=== PATIENT | female | born 1950 | race Two or more races ===

== ENCOUNTER 2017-03-14 06:33 | Day surgery (SDC) | payer MEDICARE, OTHER ==
--- NOTE | 2017-03-10 10:46 | Pre-Procedure Note/Attestation ---
Pre-Procedure Note/Attestation Complete Prior to Procedure Planned Procedure: right Procedure Narrative: 1. CATARACT EXTRACTION WITH PHACO AND PC IOL IMPLANTATION, RIGHT EYE. Indications for Procedure Pre-Operative Diagnosis: 1. CATARACT , RIGHT EYE Attestation I attest that I discussed the nature of the procedure; its benefits; risks and complications; and alternatives (and the risks and benefits of such alternatives ), prior to the procedure, with the patient (or the patient's legal enrollment eligibility representative). I attest that, if there was a reasonable possibility of needing a blood transfusion, the patient (or the patient's legal enrollment eligibility representative) was given the [place] Department of Health Services standardized written summary, pursuant to the Ravi [place] Blood Safety Act ([place] Health and Safety Code # 1645, as amended). I attest that I re-evaluated the patient just prior to the surgery and that there has been no change in the patient's H&P, except as documented below: LESVIA WEISS Mar 10, 2017 10:46
--- NOTE | 2017-03-10 10:46 | Pre-Procedure Note/Attestation ---
Pre-Procedure Note/Attestation Complete Prior to Procedure Planned Procedure: right Procedure Narrative: 1. CATARACT EXTRACTION WITH PHACO AND PC IOL IMPLANTATION, RIGHT EYE. Indications for Procedure Pre-Operative Diagnosis: 1. CATARACT , RIGHT EYE Attestation I attest that I discussed the nature of the procedure; its benefits; risks and complications; and alternatives (and the risks and benefits of such alternatives ), prior to the procedure, with the patient (or the patient's legal healthcare representative). I attest that, if there was a reasonable possibility of needing a blood transfusion, the patient (or the patient's legal healthcare representative) was given the [place] Department of Health Services standardized written summary, pursuant to the Ravi [place] Blood Safety Act ([place] Health and Safety Code # 1645, as amended). I attest that I re-evaluated the patient just prior to the surgery and that there has been no change in the patient's H&P, except as documented below: LESVIA WEISS Mar 10, 2017 10:46
--- NOTE | 2017-03-10 10:46 | Pre-Procedure Note/Attestation ---
Pre-Procedure Note/Attestation Complete Prior to Procedure Planned Procedure: right Procedure Narrative: 1. CATARACT EXTRACTION WITH PHACO AND PC IOL IMPLANTATION, RIGHT EYE. Indications for Procedure Pre-Operative Diagnosis: 1. CATARACT , RIGHT EYE Attestation I attest that I discussed the nature of the procedure; its benefits; risks and complications; and alternatives (and the risks and benefits of such alternatives ), prior to the procedure, with the patient (or the patient's legal inside outside sales representative). I attest that, if there was a reasonable possibility of needing a blood transfusion, the patient (or the patient's legal inside outside sales representative) was given the [place] Department of Health Services standardized written summary, pursuant to the Ravi [place] Blood Safety Act ([place] Health and Safety Code # 1645, as amended). I attest that I re-evaluated the patient just prior to the surgery and that there has been no change in the patient's H&P, except as documented below: LESVIA WEISS Mar 10, 2017 10:46
[2017-03-14] VITALS (9 sets, daily range): BP systolic 103–137; BP diastolic 56–81
[~2017-03-14] VITALS: Ht 152.4 cm; Wt 59.0 kg
[2017-03-14] MEDS: Ketorolac Tromethamine Opth 5ml Soln RIGHT EYE SCH ×22 (06:05→07:45)
[~2017-03-14 06:33] MED LIST: Akten 3.5% 1ml Btl ONE; Ketorolac Tromethamine Opth 5ml Soln ONE; Phenylephrine 10% Opth Soln 5ml ONE; Tropicamide 1% Opth 15ml Soln ONE; Vigamox Opth Soln 3ml ONE; acetaZOLAMIDE 125mg tab ORAL ONE
[2017-03-14] MEDS: Akten 3.5% 1ml Btl RIGHT EYE SCH ×3 (07:06→07:41)
[2017-03-14] MEDS: Tropicamide 1% Opth 15ml Soln RIGHT EYE SCH ×3 (07:06→07:41)
[2017-03-14] MEDS: Phenylephrine 10% Opth Soln 5ml RIGHT EYE SCH ×3 (07:06→07:41)
[2017-03-14] MEDS: Vigamox Opth Soln 3ml RIGHT EYE SCH ×3 (07:07→07:41)
[2017-03-14] MEDS ORDERED: Lidocaine 1% MPF 10mg/ml 5ml ONE (07:10)
[2017-03-14] MEDS ORDERED: BSS 500ml btl ONE (07:10)
[2017-03-14] MEDS ORDERED: Tetracaine 0.5% Opth 4ml Soln ONE (07:11)
[2017-03-14] MEDS ORDERED: Dexamethasone 4mg/ml vial ONE (07:11)
[2017-03-14] MEDS ORDERED: Carbachol 0.01% Op Soln 1.5ml vial ONE (07:11)
[2017-03-14] MEDS ORDERED: Povidone-Iodine 5% opth solution ONE (07:11)
[2017-03-14] MEDS ORDERED: EPINEPHrine 1mg/1ml Amp ONE (07:12)
[2017-03-14] MEDS ORDERED: BSS 15ml BTL ONE (07:12)
[2017-03-14] MEDS ORDERED: Sodium Hyaluronate 10 mg/ml 0.85ml ONE (07:12)
[2017-03-14] MEDS ORDERED: BONE STRENGTH PO (07:39)
[2017-03-14] MEDS ORDERED: MAGNESIUM250 M2 PO (07:39)
[2017-03-14] MEDS ORDERED: PRESERVISION A1 EACH PO (07:39)
[2017-03-14] MEDS ORDERED: GROW BONE PO (07:39)
[2017-03-14 08:03] LABS: ANION GAP 11 mmol/L (5-15); BASOPHILS % (AUTO) 1.4 % (0.0-2.0); BLOOD UREA NITROGEN 31 mg/dL (7-18); CALCIUM 9.6 MG/DL (8.5-10.1); CARBON DIOXIDE 23 MMOL/L (21-32); CHLORIDE 106 MMOL/L (98-107); CREATININE 0.8 MG/DL (0.55-1.30); HEMATOCRIT 37.2 % (37.0-47.0); HEMOGLOBIN 12.5 G/DL (12.0-16.0); LYMPHOCYTES % (AUTO) 34.2 % (20.0-45.0); MEAN CORPUSCULAR VOLUME 92 FL (80-99); MONOCYTES % (AUTO) 8.7 % (1.0-10.0); NEUTROPHILS % (AUTO) 50.8 % (45.0-75.0); PLATELET COUNT 164 K/UL (150-450); POTASSIUM 4.2 MMOL/L (3.5-5.1); RED BLOOD COUNT 4.02 M/UL (4.20-5.40); RED CELL DISTRIBUTION WIDTH 11.4 % (11.6-14.8); SODIUM 140 MMOL/L (136-145); WHITE BLOOD COUNT 5.9 K/UL (4.8-10.8)
[2017-03-14] MEDS ORDERED: NS Irrig 1000ml ONE (09:00)
[2017-03-14] MEDS ORDERED: Alfentanil 2ml Inj ONE (09:00)
[2017-03-14] MEDS ORDERED: Midazolam 2mg/2ml Inj ONE (09:00)
[2017-03-14] MEDS ORDERED: LR 1000ml ONE (09:00)
[2017-03-14] MEDS ORDERED: Sterile Water Irrig 1000ml IRRIG ONE (09:00)
[2017-03-14] MEDS ORDERED: LR 1000ml 1,000 ML IVLG SCH (09:28)
[2017-03-14] MEDS ORDERED: LR 1000ml 1,000 ML IV SCH (09:30)
[2017-03-14] MEDS ORDERED: fentaNYL 100 mcg/2 mL IV PRN (09:30)
--- NOTE | 2017-03-14 09:31 | Anethesia Preoperative Eval ---
Anesthesia Pre-op PMH/ROS General Date of Evaluation: Mar 14, 2017 Time of Evaluation: 09:01 Anesthesiologist: Dangelo ASA Score: ASA 1 Mallampati Score Class I : Soft palate, uvula, fauces, pillars visible Class II: Soft palate, uvula, fauces visible Class III: Soft palate, base of uvula visible Class IV: Only hard plate visible Mallampati Classification: Class II Surgeon: Dipika Diagnosis: Cataract right eye Surgical Procedure: Extraction of cataract with IOL Family History: no anesthesia problems Allergies: Uncoded Allergies: CONTRACEPTION PILLS (Allergy, Severe, 03/14/17) SWOLLEN LEGS, TIGHT CHEST Medications: see eMAR Past Medical History Cardiovascular: Denies: HTN, CAD, [place], valve dz, arrhythmia, other Pulmonary: Denies: asthma, COPD, ROD, other Gastrointestinal/Genitourinary: Denies: GERD, CRI, ESRD, other Neurologic/Psychiatric: Denies: dementia, CVA, depression/anxiety, TIA, other Endocrine: Denies: DM, hypothyroidism, steroids, other HEENT: Denies: cataract (L), cataract (R), glaucoma, [place] (L), [place] (R), other Hematology/Immune: Denies: anemia, DVT, bleeding disorder, other Musculoskeletal/Integumentary: Denies: OA, RA, DJD, DDD, edema, other PMH Narrative: Denies significant PMH PSxH Narrative: Oophorectomy Anesthesia Pre-op Phys. Exam Physician Exam Last Vital Signs Date Time Temp Pulse Resp B/P (MAP) Pulse Ox O2 Delivery O2 Flow Rate FiO2 03/14/17 07:29 97.7 63 20 137/81 98 Room Air Constitutional: NAD Neurologic: CN 2-12 intact Cardiovascular: no M/R/G Gastrointestinal: S/NT/ND Airway Exam Mallampati Score: Class II MO: full ROM: full Teeth: intact Anesthesia Pre-op A/P Labs Hematology Test 03/14/17 07:38 White Blood Count 5.9 K/UL (4.8-10.8) Red Blood Count 4.02 M/UL (4.20-5.40) L Hemoglobin 12.5 G/DL (12.0-16.0) Hematocrit 37.2 % (37.0-47.0) Mean Corpuscular Volume 92 FL (80-99) Mean Corpuscular Hemoglobin 30.9 PG (27.0-31.0) Mean Corpuscular Hemoglobin Concent 33.5 G/DL (32.0-36.0) Red Cell Distribution Width 11.4 % (11.6-14.8) L Platelet Count 164 K/UL (150-450) Mean Platelet Volume 9.9 FL (6.5-10.1) Neutrophils (%) (Auto) 50.8 % (45.0-75.0) Lymphocytes (%) (Auto) 34.2 % (20.0-45.0) Monocytes (%) (Auto) 8.7 % (1.0-10.0) Eosinophils (%) (Auto) 5.0 % (0.0-3.0) H Basophils (%) (Auto) 1.4 % (0.0-2.0) Chemistry Test 03/14/17 07:38 Sodium Level 140 MMOL/L (136-145) Potassium Level 4.2 MMOL/L (3.5-5.1) Chloride Level 106 MMOL/L (98-107) Carbon Dioxide Level 23 MMOL/L (21-32) Anion Gap 11 mmol/L (5-15) Blood Urea Nitrogen 31 mg/dL (7-18) H Creatinine 0.8 MG/DL (0.55-1.30) Estimat Glomerular Filtration Rate > 60 mL/min (>60) Glucose Level 91 MG/DL (74-106) Calcium Level 9.6 MG/DL (8.5-10.1) Risk Assessment & Plan Assessment: Healthy female for cataract extraction Plan: MAC Status Change Before Surgery: No Pre-Antibiotics Drug: None MIGDALIA TY M.D. Mar 14, 2017 09:31
--- NOTE | 2017-03-14 09:31 | Anethesia Preoperative Eval ---
Anesthesia Pre-op PMH/ROS General Date of Evaluation: Mar 14, 2017 Time of Evaluation: 09:01 Anesthesiologist: Dangelo ASA Score: ASA 1 Mallampati Score Class I : Soft palate, uvula, fauces, pillars visible Class II: Soft palate, uvula, fauces visible Class III: Soft palate, base of uvula visible Class IV: Only hard plate visible Mallampati Classification: Class II Surgeon: Dipika Diagnosis: Cataract right eye Surgical Procedure: Extraction of cataract with IOL Family History: no anesthesia problems Allergies: Uncoded Allergies: CONTRACEPTION PILLS (Allergy, Severe, 03/14/17) SWOLLEN LEGS, TIGHT CHEST Medications: see eMAR Past Medical History Cardiovascular: Denies: HTN, CAD, CT, valve dz, arrhythmia, other Pulmonary: Denies: asthma, COPD, ROD, other Gastrointestinal/Genitourinary: Denies: GERD, CRI, ESRD, other Neurologic/Psychiatric: Denies: dementia, CVA, depression/anxiety, TIA, other Endocrine: Denies: DM, hypothyroidism, steroids, other HEENT: Denies: cataract (L), cataract (R), glaucoma, [place] (L), [place] (R), other Hematology/Immune: Denies: anemia, DVT, bleeding disorder, other Musculoskeletal/Integumentary: Denies: OA, RA, DJD, DDD, edema, other PMH Narrative: Denies significant PMH PSxH Narrative: Oophorectomy Anesthesia Pre-op Phys. Exam Physician Exam Last Vital Signs Date Time Temp Pulse Resp B/P (MAP) Pulse Ox O2 Delivery O2 Flow Rate FiO2 03/14/17 07:29 97.7 63 20 137/81 98 Room Air Constitutional: NAD Neurologic: CN 2-12 intact Cardiovascular: no M/R/G Gastrointestinal: S/NT/ND Airway Exam Mallampati Score: Class II MO: full ROM: full Teeth: intact Anesthesia Pre-op A/P Labs Hematology Test 03/14/17 07:38 White Blood Count 5.9 K/UL (4.8-10.8) Red Blood Count 4.02 M/UL (4.20-5.40) L Hemoglobin 12.5 G/DL (12.0-16.0) Hematocrit 37.2 % (37.0-47.0) Mean Corpuscular Volume 92 FL (80-99) Mean Corpuscular Hemoglobin 30.9 PG (27.0-31.0) Mean Corpuscular Hemoglobin Concent 33.5 G/DL (32.0-36.0) Red Cell Distribution Width 11.4 % (11.6-14.8) L Platelet Count 164 K/UL (150-450) Mean Platelet Volume 9.9 FL (6.5-10.1) Neutrophils (%) (Auto) 50.8 % (45.0-75.0) Lymphocytes (%) (Auto) 34.2 % (20.0-45.0) Monocytes (%) (Auto) 8.7 % (1.0-10.0) Eosinophils (%) (Auto) 5.0 % (0.0-3.0) H Basophils (%) (Auto) 1.4 % (0.0-2.0) Chemistry Test 03/14/17 07:38 Sodium Level 140 MMOL/L (136-145) Potassium Level 4.2 MMOL/L (3.5-5.1) Chloride Level 106 MMOL/L (98-107) Carbon Dioxide Level 23 MMOL/L (21-32) Anion Gap 11 mmol/L (5-15) Blood Urea Nitrogen 31 mg/dL (7-18) H Creatinine 0.8 MG/DL (0.55-1.30) Estimat Glomerular Filtration Rate > 60 mL/min (>60) Glucose Level 91 MG/DL (74-106) Calcium Level 9.6 MG/DL (8.5-10.1) Risk Assessment & Plan Assessment: Healthy female for cataract extraction Plan: MAC Status Change Before Surgery: No Pre-Antibiotics Drug: None MIGDALIA TY M.D. Mar 14, 2017 09:31
--- NOTE | 2017-03-14 09:32 | Immediate Post-Op Evaluation ---
Immediate Post-Op Evalulation Immediate Post-Op Evalulation Procedure: Cataract extraction with IOL right eye Date of Evaluation: Mar 14, 2017 Time of Evaluation: 09:50 IV Fluids: 400 Blood Pressure Systolic: 128 Blood Pressure Diastolic: 71 Pulse Rate: 57 Respiratory Rate: 13 O2 Sat by Pulse Oximetry: 95 Temperature (Fahrenheit): 97.7 Pain Score (1-10): 0 Nausea: No Vomiting: No Complications No complication Patient Status: awake, patent, none Hydration Status: adequate Drug: None MIGDALIA TY M.D. Mar 14, 2017 09:31
--- NOTE | 2017-03-14 09:44 | Discharge Summary ---
Discharge Summary Discharge Summary Discharge Summary DATE OF ADMISSION: 03/14/2017 DATE OF DISCHARGE: 03/14/2017 REASON FOR HOSPITALIZATION: cataract right eye SURGERY PERFORMED: Cataract extraction with phaco and PC IOL implantation, right eye CONDITION IN THE HOSPITAL:The patient tolerated the surgery without complications. DISCHARGE CONDITION: The patient was stable at discharge. DISCHARGE MEDICATIONS: 1. Vigamox eye drops one drop q.i.d, OD 2. Prednisolone one drop q.i.d, OD 3. Acular one drop q40 OD POSTOPERATIVE ORDERS: The patient has to rest at home. No bending, No lifting, No watching Television tonight. POSTOPERATIVE FOLLOW UP: The patient will be followed in my office tomorrow morning at 7 o'clock. LESVIA WEISS Mar 14, 2017 09:44
--- NOTE | 2017-03-14 09:47 | 48 Hour Post Anesthesia Eval ---
Post Anesthesia Evaluation Procedure: Cataract extraction with IOL right eye Date of Evaluation: Mar 14, 2017 Time of Evaluation: 10:15 Blood Pressure Systolic: 114 0: 63 Pulse Rate: 59 Respiratory Rate: 12 O2 Sat by Pulse Oximetry: 97 Airway: patent Nausea: No Vomiting: No Pain Intensity: 0 Hydration Status: adequate Cardiopulmonary Status: Stable Mental Status/LOC: patient returned to baseline Follow-up Care/Observations: As per surgery Post-Anesthesia Complications: No anesthetic complication Follow-up care needed: N/A MIGDALIA TY M.D. Mar 14, 2017 09:47
--- NOTE | 2017-03-14 09:47 | Brief Operative Note ---
Immediate Post Operative Note Operative Note Chief Complaint: Blurry vision, difficulty driving and reading, right eye Pre-op Diagnosis: 1. CATARACT , RIGHT EYE Procedure: Cataract extraction with phaco and PC IOl implantation, right eye Post-op Diagnosis: same as pre-op Surgeon: Lesvia Bar MD Automatic Pad Making Machine Operator: None Additional Surgeons: None Anesthesiologist: Dr. Forte Anesthesia: MAC Specimen: none Complications: none Condition: stable Fluids: 500ml Estimated Blood Loss: none Drains: none Implant(s) used?: Yes - Monofocal PC IOl implanted in the right eye without complication LESVIA BAR Mar 14, 2017 09:47
--- NOTE | 2017-03-14 16:00 | Pre-op HX & Phy Repo 2 SIG ---
DATE OF ADMISSION: 03/14/2017 PRESURGICAL INTERNAL MEDICINE HISTORY AND PHYSICAL REASON FOR EVALUATION: I was asked by Dr. Edwin Bar to see this 66-year-old female, who is going for elective surgery on the right eye. The patient has a cataract, right eye. Please see full History and Physical by Dr. Edwin Bar. The patient was evaluated. Chart was reviewed. PAST MEDICAL HISTORY/REVIEW OF SYSTEMS: Denies history of chest pain, palpitation, or heart attack. No history of hypertension or stroke. Denies history of diabetes or thyroid problem. No history of respiratory problem, asthma, or bronchitis. Denies history of GI bleeding. No heartburn. No hepatitis. She has a history of degenerative joint disease and old history of anemia. No history of Parkinson disease, tremors, or muscle atrophy. SURGICAL HISTORY: Fibroids uterus x3 and oophorectomy bilaterally. The patient also had a surgery on both eyes for glaucoma. PRESENT MEDICATIONS: Includes calcium and magnesium supplement, eye drops for glaucoma. ALLERGIES: To contraceptive developed swollen leg and shortness of breath. SOCIAL HISTORY: Denies history of smoke, alcohol or street drug use. FAMILY HISTORY: Both parents had from complication of stroke. PHYSICAL EXAMINATION: GENERAL: The patient is alert, well-developed, well-nourished female in her 60s. Weight 130 pounds. Some information obtained from the daughter at bedside. VITAL SIGNS: Blood pressure 137/81, temperature 97.7, pulse 59, respirations 20, and O2 saturation 98% on room air. SKIN: Dry, pale and warm. No rashes. No open ulcer. LYMPH NODES: Not enlarged. HEENT: Head is normocephalic, atraumatic. Ears, clear. No discharge. Eyes, full description per Dr. Edwin Bar. Nose clear. No discharge. Mouth, clear and moist without dentures upper and lower. NECK: Supple. No jugular venous distention. Carotids artery +2. Trachea midline. No thyroid gland enlargement or node. CHEST: No deformity or asymmetry. LUNGS: Clear to auscultation and percussion. No rales or rhonchi. HEART: Sinus rhythm. No ectopy. No S3 or S4. Bradycardia. ABDOMEN: Soft. No palpable masses. Liver and spleen not enlarged. No rebound. EXTREMITIES: Osteoarthritis of knee and trigger finger on the hand. No peripheral edema or varicose veins. GENITOURINARY TRACT: No dysuria. CVA nontender. CENTRAL NERVOUS SYSTEM: No tremor. No nystagmus. LABORATORY AND DIAGNOSTIC DATA: Electrocardiogram, sinus bradycardia, 51 per minute, otherwise normal ECG. The patient's last food intake 10 p.m. yesterday. Laboratory work pending. IMPRESSION: 1. Cataract, right eye. 2. Glaucoma. 3. Osteoarthritis, knee. 4. History of anemia longtime ago. PLAN: Cataract extraction, right eye with intraocular lens implant by Dr. Edwin Bar. CONCLUSION: The patient's vital signs stable. ECG shows sinus bradycardia normal. The patient did not eat or drink from last night. The patient's condition optimized for surgery. Thank you very much, Dr. Bar, for privilege to participate presurgical care of this interesting patient. Yong Boo M.D. DR: TRISTAN JOB#: [id number] CC:
--- NOTE | 2017-03-14 21:45 | Operative Note - Dictated ---
DATE OF OPERATION: 03/14/2017 FACILITY: [facility] SURGEON: Edwin Bar M.D. LAYUP WORKER: None. ANESTHESIOLOGIST: Ravi Forte M.D. ANESTHESIA: Monitored anesthesia care (MAC). PREOPERATIVE DIAGNOSIS: Cataract, right eye. POSTOPERATIVE DIAGNOSIS: Cataract, right eye. SURGERY PERFORMED: Cataract extraction with phacoemulsification and posterior chamber intraocular lens implantation, right eye. INDICATION FOR SURGERY: The patient is a 66-year-old lady with history of osteopenia. The patient has hypertension and hypercholesterolemia. The patient is taking medication for all these ailments. She is complaining of blurred vision in the right eye. She is not a smoker, she is not drinker, and she is not allergic to any medications. She is complaining of blurry vision in the right eye. On examination of the right eye, the cornea is clear. Anterior chamber is clean and quiet. Pupillary reflexes normal. There is no RAPD. There is 4+ nuclear sclerosis and 3+ cortical cataract. Funduscopy showed normal optic disc, normal macula, and normal peripheral retina is flat. To improve her vision in the right eye, the cataract has to be removed and posterior chamber intraocular lens has to be implanted. INFORMED CONSENT: The nature of the surgery, risks, benefits, alternatives, and potential complications were all explained in detail to the patient in her language, Farsi. The potential complications including, but not limited to bleeding, infection, posterior capsular rupture, lens subluxation, flat anterior chamber, iris prolapse, uveitis, corneal edema, macular edema, endophthalmitis, retinal detachment, loss of vision, and even loss of the eye were all explained in detail to the patient. The patient voiced understanding and accepted all the complications. The alternatives including accommodating lenses, multifocal lenses, toric lens, and conventional cataract surgery with limbal relaxing incision (LRI) for treatment of astigmatism were all explained in detail to the patient in her language, Farsi. The patient voiced understanding and accepted all the complications. The patient elected to have only conventional cataract surgery in the right eye. Then, she signed the consent form, which is in the chart. DESCRIPTION OF SURGERY AND FINDINGS: Following that, the patient was taken to the operation room in a stable condition. Lidocaine gel Ak[place] 3.5% were applied to the conjunctiva of the right eye. IV sedation was given by the anesthesiologist, Dr. Forte. After adequate anesthesia and sedation had been achieved, the right eye was prepped and draped in a sterile fashion for intraocular surgery. Following that, a speculum was placed in the right eye. Following that, using a Super Sharp knife, a clear corneal side port was created. A 1% lidocaine without preservative (MPF) was injected into the anterior chamber. Viscoelastic agent Healon was injected into the anterior chamber. Following that, using a 2.8 mm keratome, a clear corneal temporal keratotomy was performed. Following that, viscoelastic agent was injected into the anterior chamber again. Following that, Vision Blue was injected under the viscoelastic agent to stain the anterior capsule of the lens. Following that, anterior capsulotomy was performed in the fashion of capsulorrhexis beautifully. Following that, the viscoelastic agent was removed from the anterior chamber. Following that, with balanced salt solution, hydrodissection and hydrodelineation were performed and the nucleus was freed. Following that, clear fresh new viscoelastic agent Healon was injected into the anterior chamber to protect the endothelium of the cornea. Following that, using phacoemulsification machine in the fashion of horizontal chop, the nucleus was removed in toto. Following that, using irrigation-aspiration unit, the cortical material was removed from the capsular bag and the capsular bag was polished. Following that, the capsular bag was filled with viscoelastic agent Healon. Following that, a +28.5 diopter foldable ZCB00 foldable PCIOL was injected with serial number [id number] was inserted into the capsular bag. Using a [place]ins[place] hook, the lens was manipulated within the proper position. Following that, the viscoelastic agent was removed from the anterior posterior part of the lens. Following that, the anterior chamber was filled with balanced salt solution and the wound was hydrated with balanced salt solution. Following that, Vigamox eye drops were applied to the conjunctiva of the right eye. The patient tolerated the surgery without complications. At the end of the surgery, the eye was patched with a clear sterile fenestrated shield. Following that, the patient was transferred to the recovery room. In the recovery room, 125 mg Diamox was given by mouth stat. Postoperative orders and directions were given to the patient. The patient will be discharged home upon stabilization. The patient will be followed in my office tomorrow morning at 9:30 a.m. Edwin Bar M.D. DR: CECILIA JOB#: [id number] CC:
--- NOTE | 2017-03-18 14:53 | Cardiology Report ---
APPROVED REPORT EKG Measurement Heart [id number] [place] [id number] [id number] Sinus bradycardia Otherwise normal ECG
--- NOTE | 2017-03-18 14:53 | Cardiology Report ---
APPROVED REPORT EKG Measurement Heart [id number] [place] [id number] [id number] Sinus bradycardia Otherwise normal ECG
--- NOTE | 2017-03-18 14:53 | Cardiology Report ---
APPROVED REPORT EKG Measurement Heart [id number] [place] [id number] [id number] Sinus bradycardia Otherwise normal ECG
== END 2017-03-14 11:05 | disposition home or self-care (01) ==
LOC: SUR 06:33
DX: H26.9 Unspecified cataract (principal); I10 Essential (primary) hypertension; E78.00 Pure hypercholesterolemia, unspecified; Z90.722 Acquired absence of ovaries, bilateral; Z82.3 Family history of stroke; H40.9 Unspecified glaucoma; M17.9 Osteoarthritis of knee, unspecified; R00.1 Bradycardia, unspecified; M85.80 Other specified disorders of bone density and structure, unspecified site
CPT/HCPCS: 36415; 66984; 80048; 85025; 93005; J0171; J1100; J2250; J3490; J7120; V2632; 94003; 94150

== ENCOUNTER 2017-03-28 07:28 | Day surgery (SDC) | payer MEDICARE, OTHER ==
--- NOTE | 2017-03-24 13:09 | Pre-Procedure Note/Attestation ---
Pre-Procedure Note/Attestation Complete Prior to Procedure Planned Procedure: left Procedure Narrative: 1. CATARACT EXTRACTION WITH PHACO AND PC IOL IMPLANTATION, LEFT EYE. Indications for Procedure Pre-Operative Diagnosis: 1. CATARACT , LEFT EYE Attestation I attest that I discussed the nature of the procedure; its benefits; risks and complications; and alternatives (and the risks and benefits of such alternatives ), prior to the procedure, with the patient (or the patient's legal veterans employment representative). I attest that, if there was a reasonable possibility of needing a blood transfusion, the patient (or the patient's legal veterans employment representative) was given the [place] Department of Health Services standardized written summary, pursuant to the Ravi [place] Blood Safety Act ([place] Health and Safety Code # 1645, as amended). I attest that I re-evaluated the patient just prior to the surgery and that there has been no change in the patient's H&P, except as documented below: LESVIA WEISS Mar 24, 2017 13:09
[~2017-03-28] VITALS: Ht 152.4 cm; Wt 59.0 kg
[2017-03-28] VITALS (10 sets, daily range): BP systolic 97–132; BP diastolic 57–78
[~2017-03-28 07:28] MED LIST changes: -Akten 3.5% 1ml Btl ONE; +BONE STRENGTH PO; +GROW BONE PO; -Ketorolac Tromethamine Opth 5ml Soln ONE; +MAGNESIUM250 M2 PO; +PRESERVISION A1 EACH PO; -Phenylephrine 10% Opth Soln 5ml ONE; -Tropicamide 1% Opth 15ml Soln ONE; -Vigamox Opth Soln 3ml ONE
[2017-03-28] MEDS ORDERED: Vigamox Opth Soln 3ml ONE (07:43)
[2017-03-28] MEDS ORDERED: Akten 3.5% 1ml Btl ONE (07:43)
[2017-03-28] MEDS ORDERED: Ketorolac Tromethamine Opth 5ml Soln ONE (07:43)
[2017-03-28] MEDS ORDERED: Phenylephrine 10% Opth Soln 5ml ONE (07:43)
[2017-03-28] MEDS ORDERED: Tropicamide 1% Opth 15ml Soln ONE (07:43)
[2017-03-28] MEDS: Vigamox Opth Soln 3ml LEFT EYE SCH ×3 (07:55→08:16)
[2017-03-28] MEDS: Ketorolac Tromethamine Opth 5ml Soln LEFT EYE SCH ×3 (07:55→08:16)
[2017-03-28] MEDS: Akten 3.5% 1ml Btl LEFT EYE SCH ×3 (07:55→08:16)
[2017-03-28] MEDS: Phenylephrine 10% Opth Soln 5ml LEFT EYE SCH ×3 (07:56→08:16)
[2017-03-28] MEDS: Tropicamide 1% Opth 15ml Soln LEFT EYE SCH ×3 (07:56→08:16)
[2017-03-28] MEDS ORDERED: Dexamethasone 4mg/ml vial ONE (10:25)
[2017-03-28] MEDS ORDERED: Povidone-Iodine 5% opth solution ONE (10:25)
[2017-03-28] MEDS ORDERED: BSS 500ml btl ONE (10:25)
[2017-03-28] MEDS ORDERED: Lidocaine 1% MPF 10mg/ml 5ml ONE (10:25)
[2017-03-28] MEDS ORDERED: EPINEPHrine 1mg/1ml Amp ONE (10:25)
[2017-03-28] MEDS ORDERED: Sodium Hyaluronate 10 mg/ml 0.85ml ONE (10:26)
[2017-03-28] MEDS ORDERED: BSS 15ml BTL ONE (10:26)
[2017-03-28] MEDS ORDERED: Sterile Water Irrig 1000ml IRRIG ONE (10:30)
[2017-03-28] MEDS ORDERED: NS Irrig 1000ml ONE (10:30)
[2017-03-28] MEDS ORDERED: LR 1000ml ONE (10:30)
[2017-03-28] MEDS ORDERED: fentaNYL 100 mcg/2 mL IV ONE (10:30)
[2017-03-28] MEDS ORDERED: Propofol 200mg/20ml IV ONE (10:30)
[2017-03-28] MEDS ORDERED: Midazolam 2mg/2ml Inj ONE (10:30)
[2017-03-28] MEDS ORDERED: LR 1000ml 1,000 ML IVLG SCH (11:06)
--- NOTE | 2017-03-28 11:06 | Anethesia Preoperative Eval ---
Anesthesia Pre-op PMH/ROS General Date of Evaluation: Mar 28, 2017 Time of Evaluation: 10:26 Anesthesiologist: Iona ASA Score: ASA 2 Mallampati Score Class I : Soft palate, uvula, fauces, pillars visible Class II: Soft palate, uvula, fauces visible Class III: Soft palate, base of uvula visible Class IV: Only hard plate visible Mallampati Classification: Class II Surgeon: Dipika Diagnosis: L eye cataract Surgical Procedure: L eye cataract extraction Anesthesia History: none Family History: no anesthesia problems Allergies: Uncoded Allergies: CONTRACEPTION PILLS (Allergy, Severe, 03/14/17) SWOLLEN LEGS, TIGHT CHEST Medications: see eMAR Past Medical History Cardiovascular: Reports: HTN - mild, Denies: CAD, [place], valve dz, arrhythmia, other Pulmonary: Denies: asthma, COPD, ROD, other Gastrointestinal/Genitourinary: Reports: GERD, Denies: CRI, ESRD, other Neurologic/Psychiatric: Reports: depression/anxiety, Denies: dementia, CVA, TIA, other Endocrine: Denies: DM, hypothyroidism, steroids, other HEENT: Reports: cataract (L), cataract (R), Denies: glaucoma, [place] (L), [place] (R), other Hematology/Immune: Reports: anemia - mild, Denies: DVT, bleeding disorder, other Musculoskeletal/Integumentary: Denies: OA, RA, DJD, DDD, edema, other PMH Narrative: as above PSxH Narrative: see H&P Anesthesia Pre-op Phys. Exam Physician Exam Last Vital Signs Date Time Temp Pulse Resp B/P (MAP) Pulse Ox O2 Delivery O2 Flow Rate FiO2 03/28/17 08:13 97.3 63 20 132/78 98 Room Air Constitutional: NAD Neurologic: CN 2-12 intact Cardiovascular: RRR, no M/R/G Respiratory: CTA Gastrointestinal: S/NT/ND Airway Exam Mallampati Score: Class II MO: full Neck: flexible ROM: full Teeth: missing Dentures: upper, lower Anesthesia Pre-op A/P Labs see chart Studies Pre-op Studies: EKG - NSR Risk Assessment & Plan Assessment: asa 2 Plan: MAC Status Change Before Surgery: No Pre-Antibiotics Drug: none SHINE XIE M.D. Mar 28, 2017 11:06
[2017-03-28] MEDS ORDERED: DiphenhydrAMINE 50mg/ml Inj IVP PRN (11:15)
[2017-03-28] MEDS ORDERED: fentaNYL 100 mcg/2 mL IV PRN (11:15)
--- NOTE | 2017-03-28 11:17 | Discharge Summary ---
Discharge Summary Discharge Summary Discharge Summary DATE OF ADMISSION: 03/28/2017 DATE OF DISCHARGE: 03/28/2017 REASON FOR HOSPITALIZATION: Cataract left eye SURGERY PERFORMED: Cataract extraction with phaco and PC IOL implantation. left eye CONDITION IN THE HOSPITAL:The patient tolerated the surgery without complications. DISCHARGE CONDITION: The patient was stable at discharge. DISCHARGE MEDICATIONS: 1. Vigamox eye drops one drop q.i.d, OS 2. Prednisolone one drop q.i.d, OS 3. Acular one drop q40, OS POSTOPERATIVE ORDERS: The patient has to rest at home. No bending, No lifting, No watching Television tonight. POSTOPERATIVE FOLLOW UP: The patient will be followed in my office tomorrow morning at 7 o'clock. LESVIA WEISS Mar 28, 2017 11:17
--- NOTE | 2017-03-28 11:20 | Immediate Post-Op Evaluation ---
Immediate Post-Op Evalulation Immediate Post-Op Evalulation Procedure: L eye cataract extraction with IOL Date of Evaluation: Mar 28, 2017 Time of Evaluation: 11:19 IV Fluids: 300 Blood Products: none Estimated Blood Loss: none Urinary Output: none Blood Pressure Systolic: 114 Blood Pressure Diastolic: 58 Pulse Rate: 62 Respiratory Rate: 20 O2 Sat by Pulse Oximetry: 99 Temperature (Fahrenheit): 97.5 Pain Score (1-10): 1 Nausea: No Vomiting: No Complications none Patient Status: awake, patent, none Hydration Status: adequate SHINE XIE M.D. Mar 28, 2017 11:20
--- NOTE | 2017-03-28 11:20 | Brief Operative Note ---
Immediate Post Operative Note Operative Note Chief Complaint: Blurry leftc eye. Difficulty driving and reading Pre-op Diagnosis: 1. CATARACT , LEFT EYE Procedure: Cataract extraction with phaco and PC IOL implantation, left eye Post-op Diagnosis: same as pre-op Surgeon: Lesvia Bar MD Tank Refinisher: None Additional Surgeons: None Anesthesiologist: Dr. Monson Anesthesia: MAC Specimen: none Complications: none Condition: stable Fluids: 500ml Estimated Blood Loss: none Drains: none Implant(s) used?: Yes - Monofocal Pv IOl implantedd in the left eye without complication LESVIA BAR Mar 28, 2017 11:20
--- NOTE | 2017-03-28 19:45 | Operative Note - Dictated ---
DATE OF OPERATION: 03/28/2017 FACILITY: [facility]. SURGEON: Edwin Bar M.D. WELL LOGGING CAPTAIN: None. ANESTHESIOLOGIST: Mick Monson M.D. ANESTHESIA: Monitored anesthesia care (MAC). PREOPERATIVE DIAGNOSIS: Cataract, left eye. POSTOPERATIVE DIAGNOSIS: Cataract, left eye. SURGERY PERFORMED: Cataract extraction with phacoemulsification and posterior chamber intraocular lens implantation in the left eye. INDICATION FOR SURGERY: The patient is a 66-year-old lady with history of osteopenia. The patient has hypertension and hypercholesterolemia as well. The patient is taking medication for all these ailments. She is complaining of blurred vision in the left eye. She had cataract surgery in the right eye last week and she is happy with the result. She is not a smoker. She is not a drinker. She is not allergic to any medications. She is complaining of blurred vision in the left eye. On examination of the left eye, the cornea is clear. Anterior chamber is clean and quiet. Pupillary reflexes normal. There is no RAPD. There is 4+ nuclear sclerosis and 3+ cortical cataract in the left eye. Funduscopy showed normal optic disc, normal macula, and normal peripheral retina. To improve her vision in the left eye, the cataract has to be removed and posterior chamber intraocular lens has to be implanted. INFORMED CONSENT: The nature of the surgery, risks, benefits, alternatives, and potential complications were all explained in detail to the patient in her language, Farsi. The potential complications including, but not limited to bleeding, infection, posterior capsular rupture, lens subluxation, flat anterior chamber, iris prolapse, uveitis, corneal edema, macular edema, endophthalmitis, retinal detachment, loss of vision, and even loss of the eye were all explained in detail to the patient. The patient voiced understanding and accepted all the complications. The alternatives including accommodating lens, multifocal lens, toric lens, and conventional cataract surgery with limbal relaxing incision (LRI) for treatment of astigmatism were all explained in detail to the patient in her language, Farsi. The patient voiced understanding and accepted all the complications. The patient elected to have only conventional cataract surgery in the left eye. Then, she signed the consent form, which is in the chart. DESCRIPTION OF SURGERY AND FINDINGS: Following that, the patient was taken to the operation room in a stable condition. Lidocaine gel Akten 3.5% were applied to the conjunctiva of the left eye. IV sedation was given by the anesthesiologist, Dr. Monson. After adequate anesthesia and sedation had been achieved, the left eye was prepped and draped in sterile fashion for intraocular surgery. Following that, a speculum was placed in the left eye. Following that, using a Super Sharp knife, a clear corneal side port was created. A 1% lidocaine without preservative (MPF) was injected into the anterior chamber. The viscoelastic agent Healon was injected into the anterior chamber. Following that, using a 2.8 mm keratome, clear corneal temporal keratotomy was performed. Following that, viscoelastic agent injected into the anterior chamber again. Following that, Vision Blue was injected under the viscoelastic agent to stain the anterior capsule of the lens. Following that, anterior capsulotomy was performed in the fashion of capsulorrhexis beautifully. Following that, viscoelastic agent was removed from the anterior chamber. Following that, with balanced salt solution, hydrodissection and hydrodelineation was performed and the nucleus was freed. Following that, clear fresh new viscoelastic agent Healon was injected into the anterior chamber to protect the endothelium of the cornea. Following that, using phacoemulsification machine in the fashion of horizontal chop, the nucleus was removed in total. Following that, using irrigation aspiration unit, the cortical material was removed from the capsular bag and the capsular bag was polished. Following that, a 25.5 diopter PC IOL model ZCBOO with serial number of [id number] was inserted into the capsular bag. Using a Sinskey hook, the lens was manipulated and put in the proper position. Following that, using irrigation and aspiration unit, the viscoelastic agent was removed from the anterior posterior part of the lens and the anterior chamber was filled with balanced salt solution. Following that, the wound was hydrated with balanced salt solution. The wound was checked for leakage. There was no leakage. Vigamox eye drops were applied to the conjunctiva of the left eye. The patient tolerated the surgery without complications. At the end of the surgery, the eye was patched with a clear sterile fenestrated shield. Following that, the patient was transferred to the recovery room. In the recovery room, 125 mg Diamox was given by mouth stat. Postoperative orders and directions were given to the patient. The patient will be discharged home upon stabilization. The patient will be followed in my office tomorrow morning at 9 o'clock. Edwin Bar M.D. DR: [place] JOB#: [id number] CC:
[2017-03-30 09:16] VITALS: BP 136/57
--- NOTE | 2017-03-30 09:16 | 48 Hour Post Anesthesia Eval ---
Post Anesthesia Evaluation Procedure: L eye cataract extraction with IOL Date of Evaluation: Mar 28, 2017 Time of Evaluation: 12:00 Blood Pressure Systolic: 136 0: 57 Pulse Rate: 68 Respiratory Rate: 22 Temperature (Fahrenheit): 97.8 O2 Sat by Pulse Oximetry: 99 Airway: patent Nausea: No Vomiting: No Pain Intensity: 1 Hydration Status: adequate Cardiopulmonary Status: stable Mental Status/LOC: patient returned to baseline Follow-up Care/Observations: n/a Post-Anesthesia Complications: none Follow-up care needed: ready to discharge SHINE XIE M.D. Mar 30, 2017 09:16
--- NOTE | 2017-04-03 16:00 | Pre-op HX & Phy Repo 2 SIG ---
DATE OF ADMISSION: 03/28/2017 PRESURGICAL INTERNAL MEDICINE HISTORY AND PHYSICAL REASON FOR EVALUATION: I was asked by Dr. Edwin Bar to see this 66-year-old female, who is going for elective surgery on the left eye. The patient has a cataract of left eye. Please see full Ophthalmology History and Physical by Dr. Edwin Bar. The patient was evaluated. Chart was reviewed. PAST MEDICAL HISTORY AND REVIEW OF SYSTEMS: Unremarkable. No history of hypertension or stroke. No history of heart attack. And o respiratory problem, asthma, or bronchitis. The patient has a history of degenerative joint disease and glaucoma. Denies history of hepatitis or GI bleeding. No history of renal failure or diabetes mellitus. No thyroid problem. PAST SURGICAL HISTORY: Oophorectomy, glaucoma, and cataract right eye two weeks ago. FAMILY HISTORY: Both parents from complication of stroke. ALLERGIES: TO CONTRACEPTIVES. The patient developed swollen legs and passed out. PRESENT MEDICATIONS: Include magnesium and calcium supplement and eye drops. HABITS: Denies history of tobacco use or alcohol use. No street drugs. PHYSICAL EXAMINATION: GENERAL: Alert, well-developed, well-nourished female in her 60s. No acute distress. VITAL SIGNS: Blood pressure 137/78, temperature 97.3 degrees, pulse 66, respirations 20, O2 saturation 96% on room air. SKIN: Dry, warm, and clear. No rashes or ulcer. LYMPH NODES: Not enlarged. HEENT: Head, normocephalic and atraumatic. Nose, clear. No discharge. Eyes, full description per Dr. Edwin Bar. Mouth, clear and moist. Ears, clear. No discharge. CHEST: No deformity or asymmetry. LUNGS: Clear to auscultation and percussion. HEART: Sinus rhythm. No ectopy. No murmur. No S3 or S4. NECK: Supple. No jugular vein distention. Carotid artery +2. Trachea midline. EXTREMITIES: Degenerative joint disease of the knee. No edema. No rashes. ABDOMEN: Soft, benign. Liver and spleen not enlarged. No palpable masses. GENITOURINARY TRACT: No dysuria. No CVA tenderness. CENTRAL NERVOUS SYSTEM: No tremor. No nystagmus. LABORATORY AND DIAGNOSTIC DATA: ECG, sinus bradycardia, 51 per minute, otherwise, normal ECG. The patient did not eat or drink from last night. Lab work done 10 days ago, normal limits. IMPRESSION: 1. Cataract, right eye. 2. Degenerative joint disease of knee. 3. Glaucoma. 4. Sinus bradycardia. PLAN: Cataract extraction, right eye with intraocular lens implant by Dr. Edwin Bar. CONCLUSION: The patient's vital signs stable. The patient did not eat or drink from last night. The patient's EKG, sinus bradycardia, otherwise normal. The patient's condition optimized for surgery. Thank you very much, Dr. Bar, for privilege to participate in presurgical care of this interesting patient. Yong Boo M.D. DR: Luís JOB#: [id number] CC:
== END 2017-03-28 13:00 | disposition home or self-care (01) ==
LOC: SUR 07:28
DX: H26.9 Unspecified cataract (principal); I10 Essential (primary) hypertension; E78.00 Pure hypercholesterolemia, unspecified; F32.9 Major depressive disorder, single episode, unspecified; F41.9 Anxiety disorder, unspecified
CPT/HCPCS: 66984; J0171; J1100; J2250; J2704; J3010; J7120; V2632; 94003; 94150